=== PATIENT | male | born 1955 | race Caucasian/White ===

== ENCOUNTER 2019-01-24 06:12 | Day surgery (SDC) | payer MEDICAID, OTHER ==
[~2019-01-24] VITALS: Ht 157.5 cm; Wt 77.1 kg
[2019-01-24] MEDS ORDERED: fentaNYL 0.05 MG/ML VIAL IVP ONE (07:43)
[2019-01-24] MEDS ORDERED: fentaNYL 0.05 MG/ML VIAL ONE (07:47)
[2019-01-24] MEDS ORDERED: MIDAZOLAM 2 MG/2 ML VIAL ONE (07:47)
[2019-01-24] MEDS ORDERED: LIDOCAINE 2% 100 MG/5 ML UJET TP ONE (07:48)
== END 2019-01-24 08:45 | disposition home or self-care (01) ==
LOC: MDS 06:12 → MMU 06:12 → MDS 08:45
PROVIDERS: ATTEND Internal Medicine Gastroenterology
DX: Z12.11 Encounter for screening for malignant neoplasm of colon (principal); K63.5 Polyp of colon; K62.1 Rectal polyp; K57.30 Diverticulosis of large intestine without perforation or abscess without bleeding; E66.3 Overweight; E11.9 Type 2 diabetes mellitus without complications; E78.00 Pure hypercholesterolemia, unspecified; F17.210 Nicotine dependence, cigarettes, uncomplicated; Z79.84 Long term (current) use of oral hypoglycemic drugs; Z79.899 Other long term (current) drug therapy; Z98.890 Other specified postprocedural states
CPT/HCPCS: 45385; J3010; J2250